=== PATIENT | male | born 1940 | race Caucasian/White ===

== ENCOUNTER 2018-06-24 13:08 | Emergency (ER) | payer MEDICARE, OTHER, MEDICAID ==
[2018-06-24] MEDS: LIDOCAINE 1% (MPF) 5 ML VIAL INJ (15:27)
== END 2018-06-24 16:24 | disposition home or self-care (01) ==
LOC: FTE 16:24
DX: L72.3 Sebaceous cyst (principal); F17.210 Nicotine dependence, cigarettes, uncomplicated; Z79.82 Long term (current) use of aspirin
CPT/HCPCS: 10060; 99283-25